=== PATIENT | female | born 1935 | race Caucasian/White ===

== ENCOUNTER 2023-12-26 13:46 | Outpatient (AMB) | payer OTHER, SELFPAY ==
[2023-12-26 13:49] VITALS: BP 142/80; PULSE 81; O2SAT 96; BMI 27.8
--- NOTE | 2023-12-26 13:49 | HO.NEPHOV ---
Vital Signs 12/26/23 13:49 Height 5 ft 4 in Weight 162 lb BMI 27.8 BP 142/80 H Blood Pressure Location Lt brachial Position Sitting Pulse 81 Pulse Source Pulse Oximeter Pulse Oximetry (%) 96 Oxygen Delivery Method Room Air Intake Visit Reasons: Hyponatremia/ conf Analysis Tester Required: No Accompanied by: Self / Same As Patient Allergies budesonide Allergy (Unknown, Verified 12/26/23 13:51) Itching cortisone Allergy (Unknown, Verified 12/26/23 13:51) Headache famotidine [From Pepcid] Allergy (Unknown, Verified 12/26/23 13:51) Nausea and Vomiting hydrochlorothiazide Allergy (Unknown, Verified 12/26/23 13:51) Unknown Medication List - Last Reconciled 12/26/23 by Rohit Montesinos MD acetaminophen (Tylenol) 650 mg PO Q6H PRN lisinopril 10 mg PO DAILY loratadine 10 mg PO DAILY lorazepam 0.5 mg PO QID PRN metoprolol succinate ER 50 mg PO DAILY spironolactone 12.5 mg PO .evening HPI Comments Details: . While this is a pleasant 88-year-old woman who has been referred for hyponatremia. Recent serum sodium level was 130 millimoles. she has had hyponatremia for the last few years. The lowest level I could see was 127 millimoles. She carries a diagnosis of hyperaldosteronism. She is on spironolactone. She used to be on 25 mg a day which has been decreased to 12.5 mg q.p.m.. Blood pressure seems to be well controlled without any issues. She has a history of syncopal episode. She was advised by her debt recovery officer to drink plenty of water and she has been drinking 60-80 oz a day. Recently she was asked to cut back on water intake and therefore she is trying to limit water intake. All medications were reviewed. [facility] Medical History (Updated 12/26/23 @ 14:05 by Rohit Montesinos MD) Gastroesophageal reflux Surgical History H/O total hip arthroplasty (~2014) Social History (Updated 12/26/23 @ 13:51 by Lakeisha Abrams, RMA) Patient Tobacco Use Status: Never used Tobacco Review of Systems Const Denies fever(s) and Denies weight loss Card Denies chest pain Resp Denies cough and Denies hemoptysis GI Denies abdominal pain, Denies diarrhea and Denies nausea Musc Denies back pain Neuro Denies focal weakness Physical Exam Vital Signs: Last Vital Signs Pulse 81 12/26/23 13:49 BP 142/80 H 12/26/23 13:49 Pulse Ox 96 12/26/23 13:49 Oxygen Delivery Method Room Air 12/26/23 13:49 BMI result Body Mass Index 27.8 Results Reviewed Results Reviewed: As of 11/28/2023 serum creatinine 0.74 BUN 15 millimoles. Sodium 130 millimoles potassium 4.7 CO2 27. Nephrology Results: No Data to Display Assessment & Plan Assessment & Plan (1) Hyponatremia: Code(s): E87.1 - Hypo-osmolality and hyponatremia Category: Medical Plan . 88-year-old woman with a history of chronic hyponatremia with acute worsening. Acute worsening may be due to excessive free water intake. She could have non osmotic ADH release contributing to decreased free water clearance She carries a diagnosis of hyperaldosteronism and she is on spironolactone 12.5 mg a day. Spironolactone could also be contributing to hyponatremia by decreasing free water clearance. I have initiated a workup for hyponatremia including urine sodium and osmolality along with serum osmolality ,TSH and cortisol levels. In the meantime I have encouraged her to limit oral free water intake to 1.2 L per 24 hours. She should stay on a regular salt diet for now. Currently she is asymptomatic and I will not recommend extra salt tablets at this time. Goal is to maintain serum sodium more than 130 millimoles. Once the workup is completed she returned in the next few weeks. I will keep you updated with the progress thank you Orders: Orders Basic Metabolic Panel 1 Week E87.1 - Hypo-osmolality and hyponatremia Cortisol, Free 1 Week E87.1 - Hypo-osmolality and hyponatremia Osmolality, Serum 1 Week E87.1 - Hypo-osmolality and hyponatremia TSH reflex Free T4 1 Week E87.1 - Hypo-osmolality and hyponatremia Creatinine Urine 1 Week E87.1 - Hypo-osmolality and hyponatremia Osmolality Urine 1 Week E87.1 - Hypo-osmolality and hyponatremia Sodium Urine Random 1 Week E87.1 - Hypo-osmolality and hyponatremia Coding Level of Care Code New Pt Level 4 (97280) Diagnoses Hyponatremia E87.1
== END 2023-12-26 14:12 | disposition home or self-care (01) ==
PROVIDERS: PCP Physician Assistant Medical; Visit Provider Internal Medicine Hypertension Specialist
DX: E87.1 Hypo-osmolality and hyponatremia (principal)
CPT/HCPCS: 99204

== ENCOUNTER → 2023-12-26 13:46 | Outpatient (BNVA) | payer OTHER, SELFPAY | PROVIDERS: PCP Physician Assistant Medical; Visit Provider Internal Medicine Hypertension Specialist ==

== ENCOUNTER 2024-01-23 13:15 | Outpatient (AMB) | payer OTHER, SELFPAY ==
[2024-01-23 13:16] VITALS: BMI 27.1
--- NOTE | 2024-01-23 13:16 | HO.NEPHOV ---
Vital Signs 01/23/24 13:16 Height 5 ft 4 in Weight 158 lb BMI 27.1 Intake Visit Reasons: 2-3wks follow up Sports Psychologist Required: No Accompanied by: Self / Same As Patient Allergies budesonide Allergy (Unknown, Verified 01/23/24 13:16) Itching cortisone Allergy (Unknown, Verified 01/23/24 13:16) Headache famotidine [From Pepcid] Allergy (Unknown, Verified 01/23/24 13:16) Nausea and Vomiting hydrochlorothiazide Allergy (Unknown, Verified 01/23/24 13:16) Unknown [facility] Medical History (Updated 12/26/23 @ 14:05 by Rohit Montesinos MD) Gastroesophageal reflux Surgical History H/O total hip arthroplasty (~2014) Social History Patient Tobacco Use Status: Never used Tobacco Physical Exam Vital Signs: BMI result Body Mass Index 27.1 Telehealth Telehealth Telehealth Platform: Telephone Location of provider rendering services: practice address Location of patient: address on file Telehealth method: voice only Minutes spent on Phone/Video with Pt.: 15 Results Reviewed Results Reviewed: Na 132 Nephrology Results: No Data to Display Assessment & Plan Assessment & Plan (1) Hyponatremia: Code(s): E87.1 - Hypo-osmolality and hyponatremia Category: Medical Plan . 88-year-old woman with a history of chronic hyponatremia with acute worsening. Acute worsening may be due to excessive free water intake. She could have non osmotic ADH release contributing to decreased free water clearance She carries a diagnosis of hyperaldosteronism and she is on spironolactone 12.5 mg a day. Spironolactone could also be contributing to hyponatremia by decreasing free water clearance. Na has improved to 132 In the meantime I have encouraged her to limit oral free water intake to 1.2 L per 24 hours. She should stay on a regular salt diet for now. Currently she is asymptomatic and I will not recommend extra salt tablets at this time. Goal is to maintain serum sodium more than 130 millimoles. Orders: Orders Basic Metabolic Panel 3 Weeks E87.1 - Hypo-osmolality and hyponatremia Coding Level of Care Code Tele Est Pt Level 2 (98398) Diagnoses Hyponatremia E87.1
== END 2024-01-23 16:29 | disposition home or self-care (01) ==
LOC: HO.HKAS 13:15
PROVIDERS: PCP Physician Assistant Medical; Visit Provider Internal Medicine Hypertension Specialist
DX: E87.1 Hypo-osmolality and hyponatremia (principal)
CPT/HCPCS: 99212

== ENCOUNTER → 2024-01-23 13:15 | Outpatient (BNVA) | payer OTHER, SELFPAY | PROVIDERS: PCP Physician Assistant Medical; Visit Provider Internal Medicine Hypertension Specialist ==